=== PATIENT | female | born 1960 | race Caucasian/White ===

== ENCOUNTER → 2016-10-20 | Outpatient (CLI) | payer BC ==
[2016-10-20 12:45] LABS: EKG EKG PERFORMED
[2016-10-20 14:59] LABS: Anion Gap 12 mmol/L; Blood Urea Nitrogen 15 mg/dL (7-17); Calcium 9.6 mg/dL (8.4-10.2); Carbon Dioxide 29 mmol/L (22-30); Chloride 102 mmol/L (98-107); Glucose 77 mg/dL (74-99); Non-African American GFR(MDRD) >60 (>60 ml/min/1.73 sqM); Sodium 143 mmol/L (137-145)
[2016-10-20 15:24] LABS: Basophils # (A) 0.1 k/uL (0-0.2); Basophils % (A) 1 %; CH 31.6; CHCM 33.5; Eosinophils # (A) 0.3 k/uL (0-0.7); Eosinophils % (A) 5 %; HCT 39.7 % (34.0-46.0); HDW 2.39; HGB 12.7 gm/dL (11.4-16.0); Luc # (Auto) 0.12; Luc % (Auto) 2; Lymphocytes # (A) 1.9 k/uL (1.0-4.8); Lymphocytes % (A) 32 %; MCH 30.5 pg (25.0-35.0); MCHC 32.1 g/dL (31.0-37.0); MCV 94.8 fL (80.0-100.0); Mean Platelet Volume 8.7; Monocytes # (A) 0.5 k/uL (0-1.0); Monocytes % (A) 9 %; Neutrophils % (A) 52 %; RBC 4.18 m/uL (3.80-5.40); WBC 5.9 k/uL (3.8-10.6); WBC (Perox) 5.87
[2016-10-20 16:41] LABS: Manual Review Performed
== END | disposition home or self-care (01) ==
LOC: LABPAT 12:32
PROVIDERS: ATTEND Obstetrics & Gynecology
DX: Z01.810 Encounter for preprocedural cardiovascular examination (principal); Z01.812 Encounter for preprocedural laboratory examination
CPT/HCPCS: 80048; 85025; 93005

== ENCOUNTER 2016-10-26 05:55 | Inpatient (IN) | payer BC ==
[2016-10-16 13:38] VITALS: BMI 39.6
--- NOTE | 2016-10-25 18:50 | P.HPOB ---
History of Present Illness H&P Date: 10/25/16 Chief Complaint: Cystocele with uterine prolapse This is a 56-year-old female 3 para 2 who presents for total vaginal hysterectomy with anterior vaginal colporrhaphy secondary to uterine prolapse with cystocele. Her symptoms include pelvic pain, groin pain, and frequent urinary tract infections. She denies any urinary incontinence. She has pelvic pain in her low pelvis that she describes as aching. This is gradually increased over the last 2 years. Her symptoms are exacerbated by prolonged standing. Pelvic ultrasound shows uterus measuring 3.3 x 5.0 x 5.7 cm and retroverted. Endometrium measured 0.3 cm. Neither ovary was visualized to to overlying bowel gas. Obstetrical history: . History of 1 section and one vaginal after section. Also history of 1 miscarriage. Gynecologic history: No history of sexually transmitted diseases. Social history: She is and works as a media job titles. Review of Systems Constitutional: Reports fatigue, Reports night sweats Ears: bilateral: tinnitus Genitourinary: Reports pelvic pain, Reports prolapse symptoms Musculoskeletal: Reports low back pain Psychiatric: Reports anxiety, Reports depression Endocrine: Reports flushing Past Medical History Past Medical History: Skin Disorder Additional Past Medical History / Comment(s): sensitive skin-gets rashes History of Any Multi-Drug Resistant Organisms: None Reported Past Surgical History: Section, Joint Replacement, Tonsillectomy Additional Past Surgical History / Comment(s): left hip replacement, D&C Past Anesthesia/Blood Transfusion Reactions: No Reported Reaction Past Psychological History: No Psychological Hx Reported Smoking Status: Never smoker Past Alcohol Use History: Occasional Past Drug Use History: None Reported - Past Family History Mother Family Medical History: Cancer, Deep Vein Thrombosis (DVT) Brother(s) Family Medical History: Cancer Medications and Allergies Home Medications Medication Instructions Recorded Confirmed Type Calcium(Dose Unknown) 1 tab PO DAILY 10/16/16 10/16/16 History Multivitamins, Thera [Multivitamin] 1 tab PO DAILY 10/16/16 10/16/16 History Vitamin D(Dose Unknown) 1 tab PO DAILY 10/16/16 10/16/16 History Allergies Allergy/AdvReac Type Severity Reaction Status Date / Time latex Allergy Rash/Hives Verified 10/16/16 13:29 Sulfa (Sulfonamide Allergy Rash/Hives Verified 10/16/16 13:29 Antibiotics) Exam Osteopathic Statement: *. No significant issues noted on an osteopathic structural exam other than those noted in the History and Physical/Consult. HEENT: Within normal limits Heart: Regular rate and rhythm Lungs: Clear to auscultation bilaterally Abdomen: Soft, nontender Pelvic exam: Grade 2 cystocele is noted. Uterus is retroverted, mildly tender, and prolapsed first to second degree. Bilateral adnexa are mildly tender but no adnexal masses are palpated. Extremities: Negative Homans Assessment and Plan (1) Cystocele with uterine prolapse Status: Acute Plan: Proceed with total vaginal hysterectomy with anterior vaginal colporrhaphy. I have discussed the risks, benefits, and alternative therapies for the above- mentioned procedure and for both sedation/anesthesia as well as necessary blood products administration, if indicated, as they pertain to this patient. The patient has indicated her understanding and acceptance of the risks and procedures discussed.
[~2016-10-26 05:55] MED LIST: DEXAMETHASONE SOD PHOSPHATE 10 MG/ML 1 ML VIAL IV ONE; FAMOTIDINE 20 MG/2 ML VIAL IV PRN; HYDROmorphone 1 MG/ML 1 ML SYRINGE IVP PRN; LACTATED RINGERS 1,000 ML IV SCH; LIDOCAINE 1% 20 ML VIAL (10MG/ML) FOR IV START INTRADERMA PRN; MIDAZOLAM 2 MG/2 ML VIAL IV PRN; ONDANSETRON 4 MG/2 ML VIAL IVP ONE; SCOPOLAMINE 1.5MG/72HR PATCH TRANSDERM ONE; ceFAZolin 2 GM in SODIUM CHLORIDE 0.9% 100 ML IVPB ONE
[2016-10-26] MEDS ORDERED: MIDAZOLAM 2 MG/2 ML VIAL ONE (07:35)
[2016-10-26] MEDS ORDERED: MORPHINE SULFATE (PF) 0.3 MG/0.3 ML SYR ONE (07:35)
[2016-10-26] MEDS ORDERED: BACITRACIN 500 UNIT/GM OINT 28.4 GM TUBE TOPICAL ONE (08:04)
[2016-10-26] MEDS ORDERED: EPINEPHrine 1 MG/ML 1 ML AMP IV ONE ×2 (08:04→08:55)
[2016-10-26] MEDS ORDERED: LACTATED RINGERS 1,000 ML IV ONE ×2 (08:47)
--- NOTE | 2016-10-26 09:11 | P.OP ---
Date of Procedure: 10/26/16 Preoperative Diagnosis: Cystocele with uterine prolapse Postoperative Diagnosis: Same Procedure(s) Performed: Total vaginal hysterectomy with anterior vaginal colporrhaphy Anesthesia: spinal (Spinal Duramorph) Surgeon: Mayelin Hernandez Harness Preparer #1: Michele Vidal Estimated Blood Loss (ml): 50 Urine output (ml): 300 Pathology: other (Uterus with cervix, vaginal mucosa) Condition: stable Disposition: floor Indications for Procedure: This is a 56-year-old female 3 para 2 who presents for total vaginal hysterectomy with anterior vaginal colporrhaphy secondary to uterine prolapse with cystocele. Her symptoms include pelvic pain, groin pain, and frequent urinary tract infections. She denies any urinary incontinence. She has pelvic pain in her low pelvis that she describes as aching. This is gradually increased over the last 2 years. Her symptoms are exacerbated by prolonged standing. Pelvic ultrasound shows uterus measuring 3.3 x 5.0 x 5.7 cm and retroverted. Endometrium measured 0.3 cm. Neither ovary was visualized to to overlying bowel gas. Operative Findings: Uterus is mid to retroverted position with grade 2 uterine prolapse. Grade 1-2 cystocele is noted. Grade 1 rectocele is noted. Description of Procedure: The patient is taken the operating room where she is placed in the dorsal lithotomy position. She is prepped and draped in the normal sterile fashion. Next a weighted speculum was placed in the patient's vagina and a right angle retractor was used to visualize the cervix. The anterior lip of the cervix is grasped with a single-tooth tenaculum. Next the cervix was circumferentially injected with one amp of epinephrine to 150 mL of normal saline. Next the cervix was circumscribed with a scalpel. The vaginal mucosa was pushed away from the cervix with a sponge. Next the uterosacral ligaments are clamped on either side with a Vinay clamp, cut with Corbin scissors, and then sutured with 0 Vicryl suture in a Vinay transfixion stitch and then held on either side with a straight hemostat. Next the posterior peritoneal reflection was identified and entered sharply with Corbin scissors. The edges of the vaginal mucosa was then tagged with 0 Vicryl suture and held with a curved hemostat for identification. Next a longbilled weighted speculum was placed through the posterior peritoneal reflection. Next the cardinal ligaments were clamped on either side with Vinay clamps, cut with Corbin scissors, and then sutured with 0 Vicryl suture in Vinay transfixion stitches and cut. Next the vesicouterine peritoneum reflection is identified and entered sharply with Metzenbaum scissors. A right angle bladder retractor is then used to retract the bladder. The uterine arteries are clamped on either side with Vinay clamps, cut with Corbin scissors, and then sutured with 0 Vicryl suture in Vinay transfixion stitches. The round ligament is also clamped on either side with a Vinay clamp , cut with Corbin scissors, and sutured with 0 Vicryl suture in Vinay transfixion stitches. Next the uterine ovarian ligament and tube were clamped on either side with a Vinay clamp, cut with Corbin scissors, and then sutured with 0 Vicryl suture in a [id number] stitch, flashed, and then free tied with another suture of 0 Vicryl suture. These pedicles were held with a straight Anuradha for identification. The uterus is removed from the field. Excellent hemostasis is noted. Neither ovary is completely visualized. Both tubes are visualized and appeared normal. Next the peritoneum is closed with 0 Vicryl suture in a pursestring fashion incorporating all the held ligaments. Next the uterine ovarian ligaments are tied together in the middle and cut. Next attention was turned to the cystocele repair. The edges of the vaginal mucosa are held with 2 Allis clamps. Next injection of the same epinephrine solution is injected underneath the mucosa upwards towards the urethra. Metzenbaum scissors were used to dissect underneath the vaginal mucosa and cut along the way up to just below the urethra. Sharp and blunt dissection are used to dissect the bladder away from the vaginal mucosa. Once the bladder is freed, the cystocele is reduced with 0 Vicryl suture in [id number] stitches on either side of the cystocele. Next the edges of the vaginal mucosa are trimmed with Metzenbaum scissors. Next the vaginal mucosa is sutured with 0 Vicryl suture in a running locked fashion incorporating the vaginal cuff. The uterosacral ligaments were also tied together in the midline prior to completely closing the vaginal cuff. Excellent hemostasis is noted. The Church catheter is inserted and clear urine is noted. Next the vagina is packed with one-inch iodoform gauze with bacitracin ointment. All sponge and needle counts are correct and the patient is then taken to recovery room in stable condition.
[2016-10-26] MEDS: SENNOSIDES-DOCUSATE SODIUM 1 EACH TAB PO SCH ×2 (10:30→20:29)
[2016-10-26] MEDS ORDERED: METOCLOPRAMIDE 5 MG/ML 2 ML VIAL IVP PRN (10:42)
[2016-10-26] MEDS ORDERED: ONDANSETRON 4 MG/2 ML VIAL IVP PRN (10:42)
[2016-10-26] MEDS ORDERED: IBUPROFEN 600 MG TAB PO PRN (10:42)
[2016-10-26] MEDS ORDERED: SIMETHICONE 80 MG CHEWABLE PO PRN (10:42)
[2016-10-26] MEDS ORDERED: Acetaminophen-Codeine 300-30mg TAB PO PRN ×2 (10:42)
[2016-10-26] MEDS: diphenhydrAMINE 50 MG/ML 1 ML VIAL IVP PRN ×2 (10:55→21:37)
[2016-10-26] MEDS: LACTATED RINGERS 1,000 ML IV SCH (18:18)
[2016-10-26] MEDS: KETOROLAC 30 MG/ML 1 ML VIAL IVP PRN (20:30)
[2016-10-27] MEDS: LACTATED RINGERS 1,000 ML IV SCH (03:26)
[2016-10-27] MEDS ORDERED: NALOXONE 0.4 MG/ML 1 ML VIAL IV PRN (07:46)
[2016-10-27] MEDS ORDERED: MORPHINE SULFATE 4 MG/ML SYRINGE IVP PRN (07:46)
[2016-10-27] MEDS ORDERED: diphenhydrAMINE 50 MG/ML 1 ML VIAL IVP PRN (07:46)
[2016-10-27] MEDS ORDERED: ONDANSETRON 4 MG/2 ML VIAL IVP PRN (07:46)
[2016-10-27] MEDS ORDERED: ACETAMINOPHEN TAB 325 MG TAB PO PRN (07:47)
[2016-10-27 08:15] LABS: Basophils % (A) 0 %; CH 31.4; CHCM 32.9; Eosinophils % (A) 0 %; HCT 37.2 % (34.0-46.0); HDW 2.33; HGB 12.1 gm/dL (11.4-16.0); Luc # (Auto) 0.18; Luc % (Auto) 2; Lymphocytes # (A) 1.4 k/uL (1.0-4.8); Lymphocytes % (A) 17 %; MCH 31.1 pg (25.0-35.0); MCHC 32.5 g/dL (31.0-37.0); Monocytes # (A) 0.5 k/uL (0-1.0); Monocytes % (A) 7 %; Neutrophils # (A) 6.1 k/uL (1.3-7.7); Neutrophils % (A) 74 %; RBC 3.87 m/uL (3.80-5.40); WBC 8.2 k/uL (3.8-10.6); WBC (Perox) 9.27
[2016-10-27] MEDS: KETOROLAC 30 MG/ML 1 ML VIAL IVP PRN (08:20)
[2016-10-27] MEDS: SENNOSIDES-DOCUSATE SODIUM 1 EACH TAB PO SCH (08:21)
[2016-10-27 08:30] VITALS: RESP 20
--- NOTE | 2016-10-27 09:14 | P.DS ---
Providers Date of admission: 10/26/16 05:55 Expected date of discharge: 10/27/16 Attending physician: Mayelin Hernandez Primary care physician: Stated None - Discharge Diagnosis(es) (1) Cystocele with uterine prolapse Current Visit: Yes Status: Acute Hospital Course: This is a 56-year-old female who underwent a total vaginal hysterectomy with anterior vaginal repair on 10/26/2016. Postoperatively she has done well. She has been up ambulating and was able to urinate so far this morning. Her catheter and packing were removed earlier this morning. Bleeding has been very minimal. Pain has been well controlled with Toradol. She is passing flatus but no bowel movement yet. Vital signs are stable. Abdomen is soft with positive bowel sounds 4. Trini-pad shows scant serosanguineous discharge. Extremities show negative Homans. Impression is status post total vaginal hysterectomy with anterior vaginal repair postoperative day #1. Plan is to discharge home later this afternoon after she has urinated at least 1 more time. She will be sent home with a prescription for ibuprofen 600 mg every 6 hours as needed for pain. She declines any narcotic pain medication because Tylenol makes her ears ring and gives her bad tinnitus. She is advised to follow up in the office in 1 week for a postoperative check. She is advised no heavy lifting, squatting, stooping. She may shower but no tub baths for 1 week. She is advised to call the office if she has any further questions or concerns prior to her appointment time. Procedures: Total vaginal hysterectomy with anterior vaginal colporrhaphy on 10/26/2016 Patient Condition at Discharge: Stable Plan - Discharge Summary New Discharge Prescriptions: Ibuprofen [Motrin] 600 mg PO Q6HR PRN #60 tab PRN Reason: Mild Discomfort Discharge Medication List Calcium(Dose Unknown) 1 tab PO DAILY 10/16/16 [History] Multivitamins, Thera [Multivitamin] 1 tab PO DAILY 10/16/16 [History] Vitamin D(Dose Unknown) 1 tab PO DAILY 10/16/16 [History] Ibuprofen [Motrin] 600 mg PO Q6HR PRN #60 tab 10/27/16 [Rx] Follow up Appointment(s)/Referral(s): Mayelin Hernandez DO [Doctor of Osteopathic Medicine] - 1 Week Activity/Diet/Wound Care/Special Instructions: Diet as tolerated. No heavy lifting. May shower, but no tub baths. No intercourse for 6 weeks. Discharge Disposition: HOME SELF-CARE
[2016-10-27 12:06] VITALS: BP 99/51; PULSE 73; TEMP 98.2
== END 2016-10-27 13:30 | disposition home or self-care (01) | DRG 743 ==
LOC: 2ORWHC 05:55 → 6PED 09:14
PROVIDERS: ADMIT Obstetrics & Gynecology; ATTEND Obstetrics & Gynecology
PROC: 0UT97ZZ Resection of Uterus, Via Natural or Artificial Opening (ICD-10-PCS; principal; 2016-10-26 07:40)
PROC: 0JQC0ZZ Repair Pelvic Region Subcutaneous Tissue and Fascia, Open Approach (ICD-10-PCS; principal; 2016-10-26 07:40)
PROC: 0UTC7ZZ Resection of Cervix, Via Natural or Artificial Opening (ICD-10-PCS; principal; 2016-10-26 07:40)
DX: N81.4 Uterovaginal prolapse, unspecified (principal); Z88.2 Allergy status to sulfonamides; Z91.040 Latex allergy status
CPT/HCPCS: 80048; 85025; 86850; 86900; 86901; 88302; 88305; 88307; 93005

== ENCOUNTER 2016-11-11 13:21 | Emergency (ER) | payer BC ==
[2016-11-11] MEDS ORDERED: HYDROmorphone 1 MG/ML 1 ML SYRINGE IVP STA (14:41)
[2016-11-11] MEDS ORDERED: SODIUM CHLORIDE 0.9% 500 ML IV ONE (14:41)
[2016-11-11] MEDS ORDERED: RX INFO: IV CONTRAST WAS GIVEN 1 EACH MISC MISCELLANE PRN (14:41)
[2016-11-11] MEDS ORDERED: ONDANSETRON 4 MG/2 ML VIAL IVP STA (14:41)
--- NOTE | 2016-11-11 14:53 | ED ---
General Adult HPI - General Chief complaint: Back Pain/Injury Stated complaint: back pain/post hysterectomy 10/26/16 Time Seen by Provider: 11/11/16 14:29 Source: patient, RN notes reviewed Mode of arrival: wheelchair Limitations: no limitations - History of Present Illness Initial comments: 55-year-old female patient who is status post transvaginal hysterectomy by Dr. Hernandez on 10/26/2016, presents to emergency department today with complaints of left lower back pain that has been worsening over the last week. Patient describes pain as sharp and constant. She states the pain worsens with any movement and when she is sitting up in a chair. Patient has tried to take ibuprofen but states that this "tears up her stomach ", and does not help. Patient has been to the chiropractor twice which has helped her in the past for her back pain issues, but states that this time is not helping. Patient states that pain has worsened significantly today. Patient denies any chest pain, shortness of breath, fever, dizziness, weakness, numbness, or tingling in any of her extremities. Denies any vaginal bleeding, discharge, dysuria, urinary frequency or urgency. She denies any nausea, vomiting, diarrhea or constipation. Patient does have shaking chills. - Related Data Previous Rx's Medication Instructions Recorded Ciprofloxacin HCl [Cipro] 500 mg PO Q12HR #20 tablet 11/11/16 Cyclobenzaprine [Flexeril] 5 mg PO TID PRN #15 tablet 11/11/16 HYDROcodone/IBUPROFEN 7.5-200 1 tab PO Q6HR PRN #15 tab 11/11/16 [Vicoprofen 7.5-200 mg] Allergies Allergy/AdvReac Type Severity Reaction Status Date / Time latex Allergy Rash/Hives Verified 11/11/16 14:29 Sulfa (Sulfonamide Allergy Rash/Hives Verified 11/11/16 14:29 Antibiotics) Review of Systems ROS Statement: Those systems with pertinent positive or pertinent negative responses have been documented in the HPI. ROS Other: All systems not noted in ROS Statement are negative. Past Medical History Past Medical History: Skin Disorder Additional Past Medical History / Comment(s): sensitive skin-gets rashes History of Any Multi-Drug Resistant Organisms: None Reported Past Surgical History: Section, Hysterectomy, Joint Replacement, Tonsillectomy Additional Past Surgical History / Comment(s): left hip replacement, D&C Past Anesthesia/Blood Transfusion Reactions: No Reported Reaction Past Psychological History: No Psychological Hx Reported Smoking Status: Never smoker Past Alcohol Use History: Occasional Past Drug Use History: None Reported - Past Family History Mother Family Medical History: Cancer, Deep Vein Thrombosis (DVT) Brother(s) Family Medical History: Cancer General Exam Limitations: no limitations General appearance: alert, anxious, in distress (Moderate distress) Head exam: Present: atraumatic, normocephalic Eye exam: Present: normal appearance, PERRL, EOMI Pupils: Present: normal accommodation ENT exam: Present: normal exam, normal oropharynx, mucous membranes moist, TM's normal bilaterally, normal external ear exam. Absent: mucous membranes dry Neck exam: Present: normal inspection, full ROM. Absent: tenderness, lymphadenopathy Respiratory exam: Present: normal lung sounds bilaterally. Absent: respiratory distress, wheezes, rales, rhonchi Cardiovascular Exam: Present: regular rate, normal rhythm, normal heart sounds. Absent: irregular rhythm, systolic murmur, diastolic murmur, rubs, gallop, clicks GI/Abdominal exam: Present: soft, normal bowel sounds. Absent: distended, tenderness, guarding, rebound, rigid Extremities exam: Present: normal inspection Back exam: Present: normal inspection, full ROM, tenderness (Left lower, and the SI joint.). Absent: CVA tenderness (R), CVA tenderness (L) Neurological exam: Present: alert, oriented X3, CN II-XII intact Psychiatric exam: Present: anxious Skin exam: Present: warm, dry, intact Course Vital Signs 11/11/16 11/11/16 11/11/16 13:35 14:36 15:57 Temperature 98.6 F 98.1 F 97.7 F Pulse Rate 100 80 Respiratory 20 26 H 15 Rate Blood Pressure 109/67 135/72 O2 Sat by Pulse 98 100 Oximetry Medical Decision Making - Medical Decision Making 56-year-old female patient presents to emergency department today for complaints of left lower back pain, and some suprapubic abdominal discomfort. Patient did undergo a transvaginal hysterectomy and bladder sling procedure by Dr. Hernandez on 10/26/2016. While in the emergency department patient did receive a computed tomography scan of the abdomen and pelvis which showed no acute abnormalities. Patient also had lab work done which revealed a urinary tract infection. No CVA tenderness. Did have some tenderness to the left lower back over the area of the SI joint. It is believed at this time the back pain is related to muscle spasm. Patient will be treated outpatient for the urinary tract infection. Patient will be given Flexeril and Vicoprofen for outpatient pain management of the back pain. Patient was also given instructions to apply heat to the area. Patient is a follow-up with her primary care doctor in 1-2 days for recheck. Patient understands she is to return for any worsening or new symptoms. Patient agrees to this plan. - Lab Data Result diagrams: 11/11/16 15:10 11/11/16 15:10 Lab Results 11/11/16 11/11/16 11/11/16 Range/Units 14:50 15:10 15:10 WBC 6.6 (3.8-10.6) k/uL RBC 4.03 (3.80-5.40) m/uL Hgb 12.7 (11.4-16.0) gm/dL Hct 37.7 (34.0-46.0) % MCV 93.4 (80.0-100.0) fL MCH 31.6 (25.0-35.0) pg MCHC 33.9 (31.0-37.0) g/dL RDW 12.8 (11.5-15.5) % Plt Count 259 (150-450) k/uL Neutrophils % 61 % Lymphocytes % 28 % Monocytes % 6 % Eosinophils % 2 % Basophils % 0 % Neutrophils # 3.6 (1.3-7.7) k/uL Lymphocytes # 1.7 (1.0-4.8) k/uL Monocytes # 0.4 (0-1.0) k/uL Eosinophils # 0.1 (0-0.7) k/uL Basophils # 0.0 (0-0.2) k/uL Sodium 142 (137-145) mmol/L Potassium 4.0 (3.5-5.1) mmol/L Chloride 107 (98-107) mmol/L Carbon Dioxide 22 (22-30) mmol/L Anion Gap 13 mmol/L BUN 15 (7-17) mg/dL Creatinine 0.74 (0.52-1.04) mg/dL Est GFR (MDRD) Af Amer >60 (>60 ml/min/1.73 sqM) Est GFR (MDRD) Non-Af >60 (>60 ml/min/1.73 sqM) Glucose 101 H (74-99) mg/dL Calcium 9.7 (8.4-10.2) mg/dL Total Bilirubin 0.6 (0.2-1.3) mg/dL AST 22 (14-36) U/L ALT 18 (9-52) U/L Alkaline Phosphatase 92 (38-126) U/L Total Protein 7.3 (6.3-8.2) g/dL Albumin 4.2 (3.5-5.0) g/dL Amylase 82 (30-110) U/L Lipase 109 (23-300) U/L Urine Color Light Yellow Urine Appearance Clear (Clear) Urine pH 8.0 (5.0-8.0) Ur Specific [place] 1.004 (1.001-1.035) Urine Protein Negative (Negative) Urine Glucose (UA) Negative (Negative) Urine Ketones Negative (Negative) Urine Blood Negative (Negative) Urine Nitrate Negative (Negative) Urine Bilirubin Negative (Negative) Urine Urobilinogen <2.0 (<2.0) mg/dL Ur Leukocyte Esterase Large H (Negative) Urine RBC 1 (0-5) /hpf Urine WBC 28 H (0-5) /hpf Ur Squamous Epith Cells 1 (0-4) /hpf Urine Bacteria Rare H (None) /hpf - Radiology Data Radiology results: report reviewed CT of the abdomen and pelvis with contrast shows no acute intra-abdominal process, to account for the patient's symptoms as read by Dr. Evans. Disposition Clinical Impression: Urinary tract infection, Muscle spasm, Lumbar back pain Disposition: HOME SELF-CARE Condition: Stable Instructions: Acute Low Back Pain (ED), Muscle Spasm (ED), Urinary Tract Infection in Women (ED) Additional Instructions: Complete antibiotic prescription in full. Increase clear fluids. Apply heat to the painful area 20 minutes at a time 4 times daily. Follow-up with primary care provider in one to 2 days. Return for any new, worsening, or concerning symptoms. Prescriptions: Ciprofloxacin HCl [Cipro] 500 mg PO Q12HR #20 tablet Cyclobenzaprine [Flexeril] 5 mg PO TID PRN #15 tablet PRN Reason: Muscle Spasm HYDROcodone/IBUPROFEN 7.5-200 [Vicoprofen 7.5-200 mg] 1 tab PO Q6HR PRN #15 tab PRN Reason: pain Referrals: Jojo Gaitan III, MD [Primary Care Provider] - 1-2 days Time of Disposition: 16:12
[2016-11-11 15:02] LABS: Appearance,Urine Clear (Clear); Bacteria,Urine Rare /hpf; Bilirubin,Urine Negative (Negative); Glucose,Urine (UA) Negative (Negative); Ketones,Urine Negative (Negative); Leukocyte Esterase,Urine Large (Negative); Nitrite,Urine Negative (Negative); Particle Count 1526; Protein,Urine Negative (Negative); RBC,Urine 1 /hpf (0-5); Specific Gravity,Urine 1.004 (1.001-1.035); Squamous Epithelial Cell,Urine 1 /hpf (0-4); UA Billing (MACRO vs. MICRO) MICRO; Urobilinogen,Urine <2.0 mg/dL (<2.0); WBC,Urine 28 /hpf (0-5)
[2016-11-11 15:36] LABS: ALT 18 U/L (9-52); AST 22 U/L (14-36); Alkaline Phosphatase 92 U/L (38-126); Amylase 82 U/L (30-110); Anion Gap 13 mmol/L; Blood Urea Nitrogen 15 mg/dL (7-17); Calcium 9.7 mg/dL (8.4-10.2); Carbon Dioxide 22 mmol/L (22-30); Chloride 107 mmol/L (98-107); Glucose 101 mg/dL (74-99); Non-African American GFR(MDRD) >60 (>60 ml/min/1.73 sqM); Sodium 142 mmol/L (137-145); Total Bilirubin 0.6 mg/dL (0.2-1.3); Total Protein 7.3 g/dL (6.3-8.2)
[2016-11-11 15:46] LABS: Basophils % (A) 0 %; CH 31.7; CHCM 34.1; Eosinophils # (A) 0.1 k/uL (0-0.7); Eosinophils % (A) 2 %; HCT 37.7 % (34.0-46.0); HDW 2.38; HGB 12.7 gm/dL (11.4-16.0); Luc # (Auto) 0.16; Luc % (Auto) 3; Lymphocytes # (A) 1.7 k/uL (1.0-4.8); Lymphocytes % (A) 28 %; MCH 31.6 pg (25.0-35.0); MCHC 33.9 g/dL (31.0-37.0); MCV 93.4 fL (80.0-100.0); Mean Platelet Volume 8.1; Monocytes # (A) 0.4 k/uL (0-1.0); Monocytes % (A) 6 %; Neutrophils # (A) 3.6 k/uL (1.3-7.7); Neutrophils % (A) 61 %; RBC 4.03 m/uL (3.80-5.40); RDW 12.8 % (11.5-15.5); WBC 6.6 k/uL (3.8-10.6); WBC (Perox) 6.97
--- NOTE | 2016-11-11 15:59 | CT ---
EXAMINATION TYPE: CT abdomen pelvis w con DATE OF EXAM: 11/11/2016 3:52 PM COMPARISON: NONE HISTORY: Hysterectomy 10-26-16, left flank pain since. CT DLP: 1645.00 mGycm CONTRAST: CT scan of the abdomen and pelvis is performed without Oral Contrast and with IV Contrast, patient in jected with 75 mL of Omnipaque 300. FINDINGS: LUNG BASES-: No visible nodule. No infiltrate. LIVER/GB: No calcified gallstones. No space occupying hepatic lesion. Biliary tree is of normal ca liber. PANCREAS: No inflammation. No distinct mass. SPLEEN: No splenic enlargement. No lesion seen. ADRENALS: No nodule. No thickening. KIDNEYS/BLADDER: No hydronephrosis. No nephrolithiasis. No disctinct renal mass. Urinary bladder g rossly unremarkable. BOWEL: Normal appendix. Normal bowel caliber. No inflammation. GENITAL ORGANS: Hysterectomy changes noted. LYMPH NODES: No greater than 1cm abdominal or pelvic lymph nodes are appreciated. AORTA: No significant abnormality. OSSEOUS STRUCTURES: Left hip prosthesis results in extensive streak artifact extending into the left hemipelvis. OTHER: No significant additional abnormality is seen. IMPRESSION: 1. No acute intra-abdominal process to account for the patient's symptoms.
[2016-11-11] MEDS ORDERED: DIAZEPAM 5 MG/ML 2 ML SYRINGE IVP STA (16:17)
[2016-11-11 16:58] VITALS: BP 122/60; PULSE 81; RESP 18; TEMP 97.6
== END 2016-11-11 16:58 | disposition home or self-care (01) ==
LOC: EC 13:21
DX: M62.830 Muscle spasm of back (principal); N39.0 Urinary tract infection, site not specified; Z91.040 Latex allergy status; Z88.2 Allergy status to sulfonamides; Z90.710 Acquired absence of both cervix and uterus
CPT/HCPCS: 36415; 80053; 82150; 83690; 85025; 81001; 87086; 87077; 87186; 74177; 99284; 96374; 96375 ×2; 96361; J3360; J2405; J1170; Q9967

== ENCOUNTER → 2016-11-23 | Outpatient (CLI) | payer BC ==
--- NOTE | 2016-11-24 08:13 | MM ---
Reason for exam: screening (asymptomatic). Last mammogram was performed 1 year and 2 months ago. History: Patient is postmenopausal. Family history of breast cancer in mother at age 72. Physical Findings: A clinical breast exam by your physician is recommended on an annual basis and results should be correlated with mammographic findings. MG Screening Mammo w CAD Bilateral CC and MLO view(s) were taken. Prior study comparison: October 03, 2015, bilateral MG screening mammo w CAD. November 08, 2013, bilateral digital screening mammo w/CAD. The breast tissue is heterogeneously dense. This may lower the sensitivity of mammography. Finding: There are typically benign punctate calcifications in both breasts. There is no discrete abnormality. ASSESSMENT: Benign, BI-RAD 2 RECOMMENDATION: Routine screening mammogram of both breasts in 1 year.
== END | disposition home or self-care (01) ==
LOC: RADMAMWWP 15:14
PROVIDERS: ATTEND Obstetrics & Gynecology
DX: Z12.31 Encounter for screening mammogram for malignant neoplasm of breast (principal)

== ENCOUNTER → 2017-01-01 | Outpatient (CLI) | payer BC ==
[2017-01-01 08:30] LABS: Cholesterol 212 mg/dL (<200); HDL Cholesterol 73 mg/dL (40-60); Triglycerides 85 mg/dL (<150)
[2017-01-01 09:18] LABS: Hepatitis C Virus IgG Index 0.04
[2017-01-01 09:22] LABS: Hepatitis C Virus IgG Ab Negative (Negative)
== END | disposition home or self-care (01) ==
LOC: LABWHC1 07:23
PROVIDERS: ATTEND Nurse Practitioner Family
DX: Z00.01 Encounter for general adult medical examination with abnormal findings (principal); Z13.21 Encounter for screening for nutritional disorder; Z13.29 Encounter for screening for other suspected endocrine disorder; Z13.220 Encounter for screening for lipoid disorders; Z13.818 Encounter for screening for other digestive system disorders
CPT/HCPCS: 36415; 80061; 82139; 82306; 84439; 84443; 86803

== ENCOUNTER → 2017-11-02 | Outpatient (CLI) | payer BC ==
--- NOTE | 2017-11-02 14:57 | CT ---
EXAMINATION TYPE: CT abdomen wo/w con DATE OF EXAM: 11/02/2017 HISTORY: Renal lesion CT DLP: 1546.70mGycm Automated Exposure Control for Dose Reduction was Utilized. CONTRAST: CT scan of the abdomen performed without and with IV Contrast, patient injected with 100 ml mL of Omn ipaque 300. COMPARISON: 11/11/2016 and 10/15/2017 FINDINGS: LUNG BASES: Bibasilar subsegmental atelectasis is minimal. LIVER/GB: No significant abnormality is appreciated. PANCREAS: No significant abnormality is seen. SPLEEN: Numerous benign splenic parenchymal granulomas are incidentally noted. ADRENALS: No significant abnormality is seen. KIDNEYS: 1 cm exophytic left anterior lower pole renal lesion is seen on the prior ultrasound is not cystic, however this measures 38 Hounsfield units on both precontrast and postcontrast imaging demons trating no enhancement therefore this could represent a hemorrhagic or proteinaceous cyst. Additional hyperdense 5 mm exophytic midpole lesion is retrospectively unchanged from the prior exam of 7 as is the larger 1 cm lesion. Therefore given nearly year stability is are favored to be benign but require continued surveillance. No other renal lesions are seen. The kidneys enhance symmetrically. No hydronephrosis or nephrolithiasis. BOWEL: There is a small hiatal hernia noted. Appendix is partially visualized, air-filled and within normal limits of size. No evidence of bowel obstruction. LYMPH NODES: No greater than 1cm abdominal or pelvic lymph nodes are appreciated. OSSEOUS STRUCTURES: Mild multilevel degenerative changes of the visualized thoracic spine are noted. IMPRESSION: 1. High density renal lesions within the mid and lower poles measuring 1 cm and 0.5 cm that are retro spectively unchanged from the exam of 11/11/2016 and demonstrate no enhancement. Therefore these are ma y represent proteinaceous and/or hemorrhagic cyst although continued surveillance is recommended with CT abdomen in 6-12 months until stability of 2 or greater years is confirmed. 2. Small hiatal hernia.
== END | disposition home or self-care (01) ==
LOC: RADCTMAIN 13:26
PROVIDERS: ATTEND Surgery
DX: N28.89 Other specified disorders of kidney and ureter (principal); K44.9 Diaphragmatic hernia without obstruction or gangrene
CPT/HCPCS: 74170; Q9967

== ENCOUNTER 2018-09-13 01:19 | Emergency (ER) | payer BC ==
[2018-09-13 01:35] VITALS: PULSE 90; RESP 16; TEMP 98.6
[2018-09-13] MEDS ORDERED: MORPHINE SULFATE 4 MG/ML SYRINGE IVP STA (01:35)
[2018-09-13] MEDS ORDERED: KETOROLAC 30 MG/ML 1 ML VIAL IVP STA (01:35)
[2018-09-13] MEDS ORDERED: SODIUM CHLORIDE 0.9% 1,000 ML IV ONE (01:35)
--- NOTE | 2018-09-13 01:41 | ED ---
General Adult HPI - General Chief complaint: Back Pain/Injury Stated complaint: Back pain Time Seen by Provider: 09/13/18 01:27 Source: patient, EMS Mode of arrival: EMS - History of Present Illness Initial comments: This 58-year-old female who presents emergency department for left sided flank and lower back pain. She states that it started suddenly approximately one hour ago. She states that she did notice some aching throughout the day however it acutely worsened suddenly. She states that she was not doing anything in particular. She states that it is not made worse with any certain movements or positions. She states that she does not recall any injury to the area. She states that she has had muscle spasms in the past and this feels completely different. No history of kidney stones. She denies any dysuria or hematuria. No nausea or vomiting. No other acute complaints. - Related Data Previous Rx's Medication Instructions Recorded Ciprofloxacin HCl [Cipro] 500 mg PO Q12HR #20 tablet 11/11/16 Cyclobenzaprine [Flexeril] 5 mg PO TID PRN #15 tablet 11/11/16 HYDROcodone/IBUPROFEN 7.5-200 1 tab PO Q6HR PRN #15 tab 11/11/16 [Vicoprofen 7.5-200 mg] Methocarbamol [Robaxin] 750 mg PO QID #15 tab 09/13/18 Naproxen 500 mg PO BID #15 tablet 09/13/18 Allergies Allergy/AdvReac Type Severity Reaction Status Date / Time latex Allergy Rash/Hives Verified 11/11/16 14:29 Sulfa (Sulfonamide Allergy Rash/Hives Verified 11/11/16 14:29 Antibiotics) Review of Systems ROS Statement: Those systems with pertinent positive or pertinent negative responses have been documented in the HPI. ROS Other: All systems not noted in ROS Statement are negative. Past Medical History Past Medical History: Skin Disorder Additional Past Medical History / Comment(s): sensitive skin-gets rashes History of Any Multi-Drug Resistant Organisms: None Reported Past Surgical History: Section, Hysterectomy, Joint Replacement, Tonsillectomy Additional Past Surgical History / Comment(s): left hip replacement, D&C Past Anesthesia/Blood Transfusion Reactions: No Reported Reaction Past Psychological History: No Psychological Hx Reported Smoking Status: Never smoker Past Alcohol Use History: Occasional Past Drug Use History: None Reported - Past Family History Mother Family Medical History: Cancer, Deep Vein Thrombosis (DVT) Brother(s) Family Medical History: Cancer General Exam - General Exam Comments Initial Comments: Constitutional: Awake alert patient appears uncomfortable Head: Normocephalic atraumatic Eyes: no conjunctival injection No scleral icterus EOMI Neck: No JVD Supple Heart: Regular rate rhythm normal S1-S2 no murmurs Lungs: Clear to auscultation bilaterally No wheezing No rales Abdomen: Soft nondistended nontender Extremities: Non edematous DP pulses intact Radial pulses intact, no tenderness to palpation in the T or L spine or paraspinal region Neuro: A&Ox3 No focal neurologic deficits Psych: Appropriate mood and affect Course Vital Signs 09/13/18 09/13/18 09/13/18 01:29 01:30 01:32 Temperature 98.6 F Pulse Rate 90 Respiratory 16 Rate Blood Pressure 111/86 111/83 O2 Sat by Pulse 91 L 94 L 96 Oximetry 09/13/18 09/13/18 09/13/18 01:40 02:10 02:40 Temperature Pulse Rate Respiratory Rate Blood Pressure 111/86 109/48 124/70 O2 Sat by Pulse 94 L Oximetry 09/13/18 09/13/18 09/13/18 02:50 03:10 03:20 Temperature Pulse Rate Respiratory Rate Blood Pressure 115/60 127/73 128/69 O2 Sat by Pulse 95 95 94 L Oximetry Medical Decision Making - Medical Decision Making Is a 58-year-old female who presents emergency department for left sided lower back pain and flank pain. Patient is CT performed of her abdomen which was unremarkable. No kidney stone. UA was negative. Blood work was unremarkable as well. The patient felt improved after medications. I suspect the patient's pain is likely muscle skeletal etiology. She will be given Robaxin and Naprosyn for home. Told to return emergency Department if she has worsening or changing symptoms. All questions answered. - Lab Data Result diagrams: 09/13/18 01:46 09/13/18 01:46 Lab Results 09/13/18 09/13/18 09/13/18 Range/Units 01:46 01:46 03:25 WBC 8.4 (3.8-10.6) k/uL RBC 4.38 (3.80-5.40) m/uL Hgb 13.6 (11.4-16.0) gm/dL Hct 40.7 (34.0-46.0) % MCV 92.9 (80.0-100.0) fL MCH 31.0 (25.0-35.0) pg MCHC 33.3 (31.0-37.0) g/dL RDW 13.1 (11.5-15.5) % Plt Count 248 (150-450) k/uL Neutrophils % 50 % Lymphocytes % 36 % Monocytes % 7 % Eosinophils % 5 % Basophils % 0 % Neutrophils # 4.2 (1.3-7.7) k/uL Lymphocytes # 3.0 (1.0-4.8) k/uL Monocytes # 0.6 (0-1.0) k/uL Eosinophils # 0.4 (0-0.7) k/uL Basophils # 0.0 (0-0.2) k/uL Sodium 141 (137-145) mmol/L Potassium 4.2 (3.5-5.1) mmol/L Chloride 105 (98-107) mmol/L Carbon Dioxide 26 (22-30) mmol/L Anion Gap 10 mmol/L BUN 18 H (7-17) mg/dL Creatinine 0.68 (0.52-1.04) mg/dL Est GFR (CKD-EPI)AfAm >90 (>60 ml/min/1.73 sqM) Est GFR (CKD-EPI)NonAf >90 (>60 ml/min/1.73 sqM) Glucose 112 H (74-99) mg/dL Calcium 9.5 (8.4-10.2) mg/dL Total Bilirubin 0.4 (0.2-1.3) mg/dL AST 22 (14-36) U/L ALT 26 (9-52) U/L Alkaline Phosphatase 102 (38-126) U/L Total Protein 7.2 (6.3-8.2) g/dL Albumin 4.2 (3.5-5.0) g/dL Urine Color Yellow Urine Appearance Clear (Clear) Urine pH 6.5 (5.0-8.0) Ur Specific [place] 1.011 (1.001-1.035) Urine Protein Negative (Negative) Urine Glucose (UA) Negative (Negative) Urine Ketones Negative (Negative) Urine Blood Negative (Negative) Urine Nitrite Negative (Negative) Urine Bilirubin Negative (Negative) Urine Urobilinogen <2.0 (<2.0) mg/dL Ur Leukocyte Esterase Negative (Negative) Disposition Clinical Impression: Back pain Disposition: HOME SELF-CARE Condition: Stable Instructions: Acute Low Back Pain (ED) Prescriptions: Methocarbamol [Robaxin] 750 mg PO QID #15 tab Naproxen 500 mg PO BID #15 tablet Is patient prescribed a controlled substance at d/c from ED?: No Referrals: Jojo Gaitan III, MD [Primary Care Provider] - 1-2 days
[2018-09-13 02:14] LABS: ALT 26 U/L (9-52); AST 22 U/L (14-36); Albumin 4.2 g/dL (3.5-5.0); Alkaline Phosphatase 102 U/L (38-126); Anion Gap 10 mmol/L; Blood Urea Nitrogen 18 mg/dL (7-17); Calcium 9.5 mg/dL (8.4-10.2); Carbon Dioxide 26 mmol/L (22-30); Chloride 105 mmol/L (98-107); Glucose 112 mg/dL (74-99); Potassium 4.2 mmol/L (3.5-5.1); Sodium 141 mmol/L (137-145); Total Bilirubin 0.4 mg/dL (0.2-1.3); Total Protein 7.2 g/dL (6.3-8.2)
[2018-09-13 02:38] LABS: Basophils % (A) 0 %; Eosinophils # (A) 0.4 k/uL (0-0.7); Eosinophils % (A) 5 %; HCT 40.7 % (34.0-46.0); HGB 13.6 gm/dL (11.4-16.0); Lymphocytes % (A) 36 %; MCHC 33.3 g/dL (31.0-37.0); MCV 92.9 fL (80.0-100.0); Mean Platelet Volume 7.8; Monocytes # (A) 0.6 k/uL (0-1.0); Monocytes % (A) 7 %; Neutrophils # (A) 4.2 k/uL (1.3-7.7); Neutrophils % (A) 50 %; Platelet Count 248 k/uL (150-450); RBC 4.38 m/uL (3.80-5.40); RDW 13.1 % (11.5-15.5); WBC 8.4 k/uL (3.8-10.6)
--- NOTE | 2018-09-13 02:43 | CT ---
EXAMINATION TYPE: CT abdomen pelvis wo con DATE OF EXAM: 09/13/2018 COMPARISON: 11/02/2017 HISTORY: left flank pain CT DLP: 1008.7 mGycm Automated exposure control for dose reduction was used. TECHNIQUE: Helical acquisition of images was performed from the lung bases through the pelvis. FINDINGS: There is some patchy atelectasis at the lung bases. There is no pericardial effusion. There is no ple ural effusion. Liver appears normal. Spleen appears normal. Bile ducts are not dilated. There is no pancreatic mass. There are small calcified splenic granulomata. Stomach appears normal. There is no adrenal mass. Kidneys of normal size and contour. There is no hydronephrosis. There is no retroperitoneal adenopathy. Appendix appears normal. There is 5 mm calcifying cyst on the lateral left kidney unchanged. There is metal artifact from left hip prosthesis. Bladder appears normal. There is no inguinal hernia . There is no free fluid in the pelvis. I see no evidence of a bowel obstruction. There is no mesente nora edema. There is no evidence of bowel obstruction. The bony pelvis is intact. Lumbar spine is intact. There is no evidence of pneumoperitoneum. IMPRESSION: THERE IS NO PATCHY ATELECTASIS AT THE LUNG BASES COMPARED TO OLD EXAM. NO ACUTE ABNORMALITY SEEN WITH IN THE ABDOMEN AND PELVIS.
[2018-09-13 03:58] LABS: Appearance,Urine Clear (Clear); Bilirubin,Urine Negative (Negative); Blood,Urine Negative (Negative); Color,Urine Yellow; Glucose,Urine (UA) Negative (Negative); Ketones,Urine Negative (Negative); Leukocyte Esterase,Urine Negative (Negative); Nitrite,Urine Negative (Negative); PH, Urine 6.5 (5.0-8.0); Protein,Urine Negative (Negative); Specific Gravity,Urine 1.011 (1.001-1.035); Urobilinogen,Urine <2.0 mg/dL (<2.0)
--- NOTE | 2018-09-13 03:59 | XR ---
EXAMINATION TYPE: XR chest 2V DATE OF EXAM: 09/13/2018 COMPARISON: NONE HISTORY: Chest pain TECHNIQUE: Frontal and lateral views of the chest are obtained. FINDINGS: There is patchy linear density at the lung bases. There is no pleural effusion. Heart size is normal. Bony thorax is intact. IMPRESSION: Mild patchy atelectasis at the lung bases. Normal heart. No heart failure.
[2018-09-13] MEDS ORDERED: METHOCARBAMOL 500 MG TAB PO STA (04:18)
[2018-09-13 04:41] VITALS: BP 128/70
== END 2018-09-13 04:42 | disposition home or self-care (01) ==
LOC: EC 01:19
DX: M54.5 Low back pain (principal); R10.9 Unspecified abdominal pain; Z90.710 Acquired absence of both cervix and uterus; Z96.642 Presence of left artificial hip joint; Z91.040 Latex allergy status; Z88.2 Allergy status to sulfonamides
CPT/HCPCS: 99285; 96374; 96375; 96361; 36415; 80053; 85025; 81003; 71046; 74176; J2270; J1885

== ENCOUNTER → 2018-11-09 | Outpatient (CLI) | payer BC ==
--- NOTE | 2018-11-10 11:23 | MM ---
Reason for exam: screening (asymptomatic). Last mammogram was performed 1 year and 11 months ago. History: Patient is postmenopausal. Family history of breast cancer in mother at age 72. Physical Findings: A clinical breast exam by your physician is recommended on an annual basis and results should be correlated with mammographic findings. MG 3D Screening Mammo W/Cad Bilateral CC and MLO view(s) were taken. Prior study comparison: November 23, 2016, bilateral MG screening mammo w CAD. October 03, 2015, bilateral MG screening mammo w CAD. The breast tissue is heterogeneously dense. This may lower the sensitivity of mammography. No significant changes when compared with prior studies. ASSESSMENT: Benign, BI-RAD 2 RECOMMENDATION: Routine screening mammogram of both breasts in 1 year.
== END | disposition home or self-care (01) ==
LOC: RADMAMWWP 13:08
PROVIDERS: ATTEND Obstetrics & Gynecology
DX: Z12.31 Encounter for screening mammogram for malignant neoplasm of breast (principal); Z80.3 Family history of malignant neoplasm of breast
CPT/HCPCS: 77063; 77067

== ENCOUNTER → 2021-01-08 | Outpatient (CLI) | payer BC ==
--- NOTE | 2021-01-09 14:02 | MM ---
Reason for exam: screening (asymptomatic). Last mammogram was performed 2 years and 2 months ago. History: Patient is postmenopausal. Family history of breast cancer in mother at age 72. Physical Findings: A clinical breast exam by your physician is recommended on an annual basis and results should be correlated with mammographic findings. MG Screening Mammo w CAD Bilateral CC and MLO view(s) were taken. Prior study comparison: November 09, 2018, bilateral MG 3d screening mammo w/cad. November 23, 2016, bilateral MG screening mammo w CAD. The breast tissue is heterogeneously dense. This may lower the sensitivity of mammography. Benign appearing bilateral calcifications. No significant changes when compared with prior studies. ASSESSMENT: Benign, BI-RAD 2 RECOMMENDATION: Routine screening mammogram of both breasts in 1 year.
== END | disposition home or self-care (01) ==
LOC: RADMAMWWP 16:13
PROVIDERS: ATTEND Family Medicine
DX: Z12.31 Encounter for screening mammogram for malignant neoplasm of breast (principal); Z78.0 Asymptomatic menopausal state; Z80.3 Family history of malignant neoplasm of breast
CPT/HCPCS: 77067

== ENCOUNTER → 2022-04-09 | Outpatient (CLI) | payer BC ==
--- NOTE | 2022-04-12 18:26 | MM ---
Reason for Exam: Screening (asymptomatic). Last mammogram was performed 1 year(s) and 3 month(s) ago. Patient History: Menarche at age 14. First Full-Term at age 28. Hysterectomy at age 56. Postmenopausal. Mother had breast cancer, age 72. Risk Values: Angy 5 year model risk: 2.7%. NCI Lifetime model risk: 14.2%. Prior Study Comparison: 11/23/2016 Bilateral Screening Mammogram, [facility]. 11/09/2018 Bilateral Screening Mammogram, [facility]. 01/08/2021 Bilateral Screening Mammogram, [facility]. Tissue Density: The breast tissue is heterogeneously dense. This may lower the sensitivity of mammography. Findings: Analyzed By CAD. Asymmetric density central anterior left cc view disperses on 3-D images. No persisting abnormality or significant change from prior exams. Overall Assessment: Benign, BI-RAD 2 Management: Screening Mammogram of both breasts in 1 year. 1. Patient should continue monthly self breast exams. 2. A clinical breast exam by your physician is recommended on an annual basis. 3. This exam should not preclude additional follow-up of suspicious palpable abnormalities. Electronically signed and approved by: Shivani Hatch M.D. Radiologist
== END | disposition home or self-care (01) ==
LOC: RADMAMWWP 13:59
PROVIDERS: ATTEND Nurse Practitioner
DX: Z12.31 Encounter for screening mammogram for malignant neoplasm of breast (principal); Z78.0 Asymptomatic menopausal state; Z80.3 Family history of malignant neoplasm of breast
CPT/HCPCS: 77063; 77067

== ENCOUNTER → 2023-11-19 | Outpatient (CLI) | payer BC ==
--- NOTE | 2023-11-22 20:14 | MM ---
Reason for Exam: Screening (asymptomatic). Last mammogram was performed 1 year(s) and 8 month(s) ago. Patient History: Menarche at age 14. First Full-Term at age 28. Hysterectomy at age 56. Postmenopausal. Patient has history of breast feeding. Mother had breast cancer, age 72. Risk Values: Angy 5 year model risk: 2.9%. NCI Lifetime model risk: 13.5%. Prior Study Comparison: 11/23/2016 Bilateral Screening Mammogram, [facility]. 11/09/2018 Bilateral Screening Mammogram, [facility]. 01/08/2021 Bilateral Screening Mammogram, [facility]. 04/09/2022 Bilateral MG 3D screening mammo w/cad, [facility]. Tissue Density: The breasts are heterogeneously dense, which may obscure small masses. Findings: Analyzed By CAD. There is no suspicious group of microcalcifications or new suspicious mass in either breast. Overall Assessment: Negative, BI-RAD 1 Management: Screening Mammogram of both breasts in 1 year. . Patient should continue monthly self-breast exams. A clinical breast exam by your physician is recommended on an annual basis. This exam should not preclude additional follow-up of suspicious palpable abnormalities. Note on Angy scores and lifetime risk: 1. A Angy score greater than 3% is considered moderate risk. If this is the case, consider specialist referral to assess eligibility for a risk reducing agent. 2. If overall lifetime risk for the development of breast cancer is 20% or higher, the patient may qualify for future screening with alternating mammogram and breast MRI. Electronically signed and approved by: Shivani Hatch M.D. Radiologist
== END | disposition home or self-care (01) ==
LOC: RADMAMWWP 12:06
PROVIDERS: ATTEND Family Medicine
DX: Z12.31 Encounter for screening mammogram for malignant neoplasm of breast (principal); Z78.0 Asymptomatic menopausal state; Z80.3 Family history of malignant neoplasm of breast
CPT/HCPCS: 77063; 77067